=== PATIENT | male | born 1990 | race Caucasian/White ===

== ENCOUNTER → 2020-12-30 | Emergency (ER) | payer SELFPAY ==
[~2020-12-30] VITALS: Ht 180.3 cm; Wt 61.2 kg
[~2020-12-30] MED LIST: NALOXONE PREFILLED SYRINGE 2 MG/2 ML SYRINGE ONE
--- NOTE | 2020-12-30 23:01 | NUR ---
PT BIBEMS C/O POSSIBLE OVERDOSE ON UNK MEDS. NOTED PINPOINT PUPILS AND SHALLOW RESPIRATIONS UPON ASSESSMENT. PT PLACED IN BED 9 ON 15L NR, ELECT[employer]IC SWITCH [employer]PA[employer]ER, AND PULSE OX. MD AT BEDSIDE FOR EVAL. AWAITING ORDERS.
[2020-12-30] MEDS: IV NS 0.9% 1,000 ML BAG IV ONE (23:12)
[2020-12-30] MEDS: NALOXONE PREFILLED SYRINGE 2 MG/2 ML SYRINGE IV ONE (23:12)
[2020-12-30 23:22] LABS: BASOPHILS # (AUTO) 0.1 /CMM (0.0-0.2); BASOPHILS % (AUTO) 0.3 % (0.0-2.0); HEMATOCRIT 46 % (39-51); HEMOGLOBIN 15.1 g/dL (13.5-17.5); LYMPHOCYTES # (AUTO) 5.5 /CMM (0.8-4.8); LYMPHOCYTES % (AUTO) 24.5 % (20.0-44.0); MEAN CORPUSCULAR HGB CONC 33 g/dl (31.0-36.0); MEAN CORPUSCULAR VOLUME 95 fL (80-96); MONOCYTES # (AUTO) 1.3 /CMM (0.1-1.30); MONOCYTES % (AUTO) 5.9 % (2.0-12.0); NEUTROPHILS # (AUTO) 15.2 /CMM (1.8-8.9); NEUTROPHILS % (AUTO) 68.3 % (43.0-81.0); PLATELET COUNT (AUTO) 402 /CMM (150-450); RED BLOOD CELL COUNT(AUTO) 4.84 MIL/uL (4.5-6.0); WHITE BLOOD COUNT (AUTO) 22.3 K/uL (4.3-11.0)
[2020-12-30 23:40] LABS: ALANINE AMINOTRANSFERASE 38 U/L (12-78); ALBUMIN 4.4 g/dL (3.4-5.0); ALCOHOL, BLOOD < 3 mg/dL (0-0); ALKALINE PHOSPHATASE 69 U/L (46-116); ASPARTATE AMINOTRANSFERASE 22 U/L (15-37); BILIRUBIN,DIRECT 0.2 mg/dL (0.0-0.2); BILIRUBIN,TOTAL 0.6 mg/dL (0.2-1.0); CALCIUM, SERUM 9.1 mg/dL (8.5-10.1); CARBON DIOXIDE 29 mmol/L (21-32); CHLORIDE 101 mmol/L (98-107); CREATININE 1.3 mg/dL (0.6-1.3); GLUCOSE 305 mg/dL (74-106); POTASSIUM 4.2 mmol/L (3.5-5.1); SODIUM SERUM 140 mmol/L (136-145); TOTAL PROTEIN, SERUM 7.9 g/dL (6.4-8.2); UREA NITROGEN, BLOOD 10 mg/dL (7-18)
[2020-12-30 23:48] LABS: ACETAMINOPHEN < 2 ug/ml (10-30)
[2020-12-30 23:49] LABS: BILIRUBIN,URINE NEGATIVE (NEGATIVE); COLOR,URINE YELLOW (YELLOW); LEUKOCYTE ESTERASE ,URINE NEGATIVE (NEGATIVE); NITRITE, URINE NEGATIVE (NEGATIVE); PROTEIN,URINE NEGATIVE (NEGATIVE); UGLUCOSE 100 MG/DL mg/dL (NEGATIVE); UROBILINOGEN,URINE 0.2 EU/dL (0.2)
--- NOTE | 2020-12-31 01:10 | NUR ---
PT WOKE UP, REQUESTED FOR URINAL. AWARE HE IS IN THE HOSPITAL.
[2020-12-31 01:12] LABS: BACTERIA,URINE None seen /HPF (None Seen); MUCUS,URINE Few /LPF (None Seen); SQUAMOUS EPITHELIAL CELL,UR Few /HPF (None Seen); WBC,URINE 0-2 /HPF (0-3)
--- NOTE | 2020-12-31 05:16 | NUR ---
PT REMAINS ASLEEP, VSS.
--- NOTE | 2020-12-31 11:38 | NUR ---
Yash olmos in [facility] - 12/31/20 at 1153 by RODNEY THOM CORNEJO [phone] TELE.
--- NOTE | 2020-12-31 12:07 | NUR ---
dc patient , steady gait , piv dc no bleeding , vs stable , picked up by girl friend , discharge instructions provided , pt verbalized understanding , pt [id number] ,
[2020-12-31 12:08] VITALS: BP 128/56
== END | disposition home or self-care (01) ==
LOC: ER 22:59
DX: T50.991A Poisoning by other drugs, medicaments and biological substances, accidental (unintentional), initial encounter (principal); F19.10 Other psychoactive substance abuse, uncomplicated; R00.0 Tachycardia, unspecified; Y92.89 Other specified places as the place of occurrence of the external cause
CPT/HCPCS: 36415; 71045; 80048; 80076; 80299; 80307; 80320; 81001; 82550; 82962; 85025; 93005; 96361; 96374; 99285; J2310; J7030; G0480